=== PATIENT | female | born 2000 | race Caucasian/White ===

== ENCOUNTER 2018-08-15 10:14 | Emergency (ER) | payer OTHER ==
[~2018-08-15] VITALS: Ht 154.9 cm; Wt 58.5 kg
[2018-08-15 10:32] VITALS: BP 107/66
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
--- NOTE | 2018-08-15 11:48 | NUR ---
PT APPEARS TO BE RELAXED AND SITTING IN BED. DENIES ANY PAIN AT THIS TIME.
--- NOTE | 2018-08-15 11:53 | NUR ---
Patient discharged with v/s stable. Written and verbal after care instructions given and explained. Patient verbalized understanding. Ambulatory with steady gait. All questions addressed prior to discharge. Advised to follow up with PMD.
[2018-08-15 11:54] VITALS: BP 101/47
== END 2018-08-15 11:53 | disposition home or self-care (01) ==
LOC: MED 10:14
DX: S39.012A Strain of muscle, fascia and tendon of lower back, initial encounter (principal); M25.511 Pain in right shoulder; V89.2XXA Person injured in unspecified motor-vehicle accident, traffic, initial encounter; Y93.89 Activity, other specified; Y92.488 Other paved roadways as the place of occurrence of the external cause; Y99.8 Other external cause status
CPT/HCPCS: 81002; 81025; 99283